=== PATIENT | female | born 1955 | race Caucasian/White ===

== ENCOUNTER → 2017-09-05 | Outpatient (CLI) | payer OTHER, MEDICAID ==
--- NOTE | 2017-09-05 11:55 | RAD ---
Examination: Chest, PA and lateral views History: Cough, SOB Comparison reference: None Findings: There is marked diaphragm elevation with resulting low pulmonary volumes. The lung base the se are partly obscured but there are areas of compression atelectasis in both lower lobes. The upper lungs are relatively clear. A right subclavian injection port terminates near the right atrium. Impression: Chest examination is expiratory with very low pulmonary volumes, accentuating bibasal ate lectasis. Repeat/follow-up recommended. Reported By:
--- NOTE | 2017-09-07 08:09 | CT ---
HISTORY: Shortness breath. Cough. Lung nodule. Study: Computed tomography of chest: Multiple axial images were obtained throughout the chest. Int ravascular contrast was not administered. Radiation dose reduction techniques utilized. Comparison: Plain film chest x-ray 09/05/2017 Findings: There is mild atelectatic change/scarring in the lung bases with mild hypostatic change. There is mo derate elevation of right hemidiaphragm with what appear to be surgical sutures in the right lung bas e. Mild deformity of posterior ribs on the right is noted suggesting previous thoracotomy, clinical correlation recommended. A right-sided Port-A-Cath is present and the tip is at the cavoatrial junct ion. There is what appears to be a nodule in the left upper lobe anteriorly measuring 6.7 mm in maxi mum dimension. This does not appear to be calcified appreciably. The thyroid is heterogeneous with a possible nodule in the right lobe. No evidence of supraclavicula r adenopathy or axillary adenopathy is identified. There are several small to borderline enlarged ly mph nodes in the mediastinum. There is 1 in the region of the aortopulmonary window measuring approx imately 14 mm in maximum dimension. There are 3-4 others present in this region. A precarinal lymph node is noted measuring 16 mm in maximum dimension. Sub-carinal lymph nodes are present with 1 mireya uring at least 15.5 mm. There is a left paratracheal lymph node measuring at least 2.3 cm. The hear t size is normal. Aortic root dilatation is noted measuring up to 3.6 cm. The pulmonary artery is n ormal in size. I see no definite evidence of hilar adenopathy. A small hiatal hernia is present. The visualized abdomen shows fatty infiltration of the liver. There appears to be focal fatty sparin g around the gallbladder fossa. The patient is status post cholecystectomy. There is a small area o f calcification or possible surgical suture within the posterior peritoneal cavity adjacent to the ri ght lobe of the liver. The spleen as visualized is normal. The adrenal glands are normal. The uppe r poles of the kidneys appear normal. Mild atherosclerotic changes present within the abdominal aort a. The visualized bowel is normal. There is mild thoracic spondylosis is noted. Similar findings are noted in the visualized cervical s pine. No acute bony abnormalities are identified. IMPRESSION: 1. Mild bibasilar atelectatic change/infiltrate. 2. There is what appears to be a noncalcified nodule in the left upper lobe measuring 6.7 mm in maxi mum dimension. Comparison prior films are recommended to assess for stability. Six-month follow-up may be of assistance as well. 3. There are postthoracotomy changes on the right. 4. Nonspecific lymph node enlargement in the mediastinum. Comparison to prior films are recommended to assess for stability. These could be reactive or from etiologies such as metastatic disease or ly mphoma. Clinical correlation is recommended. Reported By:
== END ==
LOC: RAD 10:39
PROVIDERS: ATTEND Internal Medicine Sleep Medicine
DX: R06.02 Shortness of breath (principal); R05 Cough
CPT/HCPCS: 71020; 71250